=== PATIENT | male | born 2005 | race Caucasian/White ===

== ENCOUNTER 2024-12-01 06:14 | Emergency (ER) | payer OTHER ==
[~2024-12-01] VITALS: Ht 175.3 cm; Wt 72.5 kg
[2024-12-01 07:36] LABS: BASO # 0.0 10^3/uL (0.0-0.2); BASO % 0.3 % (0.0-1.0); EOS # 0.1 10^3/uL (0.0-0.5); EOS % 0.7 % (0.0-3.0); LYMPH # 1.2 10^3/uL (1.5-5.0); LYMPH % 8.8 % (24.0-44.0); MONO # 1.1 10^3/uL (0.0-0.8); MONO % 7.9 % (2.0-8.0); NEUTROPHILS # 11.1 10^3/uL (1.5-8.5); NEUTROPHILS % 81.9 % (36.0-66.0); PLATELET COUNT, AUTOMATED 281 10^3/uL (150-450)
[2024-12-01 07:56] LABS: CALCIUM LEVEL 8.8 MG/DL (8.5-10.1); CARBON DIOXIDE LEVEL 26 MMOL/L (20-31); CHLORIDE LEVEL 103 MMOL/L (98-107); CREATININE FOR GFR 0.84 MG/DL (0.70-1.30); GLOMERULAR FILTRATION RATE > 90.0 (>60); POTASSIUM SERUM 4.5 MMOL/L (3.5-5.1); SODIUM LEVEL 136 MMOL/L (136-145)
[2024-12-01 07:59] LABS: C REACTIVE PROTEIN QUANTITATIV 10.01 MG/DL (<1.0)
[2024-12-01 08:02] LABS: MONO SCRN NEGATIVE (NEGATIVE)
[2024-12-01] MEDS: diphenhydrAMINE 50 MG/ML VIAL IV ONE (08:15)
[2024-12-01] MEDS: KETOROLAC 30 MG/ML 1 ML VIAL IV ONE (08:15)
[2024-12-01] MEDS: NS (Normal Saline) 0.9% 1,000 ML IV ONE (08:16)
[2024-12-01] MEDS: ACETAMINOPHEN 500 MG TAB PO ONE (08:16)
[2024-12-01 09:04] LABS: ERYTHROCYTE SEDIMENTATION RATE 82 mm/hr (0-15)
[2024-12-01 11:45] VITALS: BP 102/76
[2024-12-01 11:48] VITALS: TEMP 97.9; O2SAT 99
== END 2024-12-01 12:03 | disposition home or self-care (01) ==
LOC: M ED 06:14
DX: R51.9 Headache, unspecified (principal); B34.8 Other viral infections of unspecified site; Z20.822 Contact with and (suspected) exposure to COVID-19
CPT/HCPCS: 71045; 80048; 83605; 84145; 85025; 85652; 86140; 86308; 87040; 87486; 87581; 87633; 87798; 87880; 96361; 96374; 96375; 99285; J1200; J1885; J2765